=== PATIENT | male | born 1975 | race Caucasian/White ===

== ENCOUNTER 2016-07-12 12:46 | Emergency (ER) | END 2016-07-12 14:06 | disposition home or self-care (01) | DX: M54.5 Low back pain (principal); I10 Essential (primary) hypertension; F41.9 Anxiety disorder, unspecified ==

== ENCOUNTER 2016-12-29 00:52 | Emergency (ER) | payer OTHER ==
[~2016-12-29] VITALS: Ht 185.4 cm; Wt 84.0 kg
[~2016-12-29 00:52] MED LIST: HYDR-845 PO; LACT20SO2 PO; LISI-523 PO; LISI2.5T59 PO; MAG355OR15 PO; METO-448 PO; ONDA4TAB35 PO; PANT40TA4 PO; PENT400T2 PO; POTA20TA96 PO; PRED5TAB50 PO; RIFA550T4 PO; TRAM50TA2 PO
[2016-12-29 00:58] VITALS: Ht 185.4 cm; Wt 84.0 kg
--- NOTE | 2016-12-29 01:51 | ERD ---
ER Documentation Chief Complaint Date/Time DATE: 12/29/16 TIME: 01:46 Chief Complaint HEADACHE, FEELS LIKE PINS S/P HEAD INJURY 3 WEEKS AGO HPI Patient is a 41-year-old male with a past medical history of hypertension presents emergency department for concerns of a headache. Patient states 3 weeks ago he slipped in the bathroom on urine. Patient states that he did sustain a laceration to his left occipital head. Patient was seen at [facility] and states that he did have negative CT scans. Since that same patient states he continues to have headache. Patient states he has a pins and needle sensation to his head. Patient denies any sudden onset of the headache. Patient states his pain is throbbing in nature. Patient states the pain is improved when rubbing the affected area. Patient does report occasional neck pain. Patient denies any nausea, vomiting, blurry vision, excessive sleepiness , confusion or loss consciousness. Patient is speaking in full sentences. Patient denies any fevers, chills, neck stiffness, unilateral weakness. Patient is able to ambulate without any difficulty. ROS All systems reviewed and are negative except as per history of present illness. Medications Home Meds Active Scripts Acetaminophen* (Tylophen*) 500 Mg Capsule, 2 CAP PO Q6H Y for PAIN AND OR ELEVATED TEMP, #20 CAP Prov:NICK CYR PA-C 12/29/16 Hydroxyzine Hcl* (Atarax*) 50 Mg Tab, 50 MG PO Q8H Y for ANXIETY, #20 TAB Prov:EDIN MERIDA MD 07/12/16 Tramadol HCl (Tramadol HCl) 50 Mg Tablet, 50 MG PO Q6 Y for PAIN, #20 TAB Prov:EDIN MERIDA MD 07/12/16 Lisinopril* (Lisinopril*) 2.5 Mg Tablet, 2.5 MG PO DAILY, #30 TAB Prov:KALIN QUINONES MD 10/18/15 Metoprolol Tartrate* (Lopressor*) 25 Mg Tab, 12.5 MG PO BID, #60 TAB Prov:KALIN QUINONES MD 10/18/15 Potassium Chloride* (Potassium Chloride*) 20 Meq Tablet.er, 20 MEQ PO DAILY for 30 Days, TAB.SA Prov:ERYN WOODWARD 04/01/15 Rifaximin* (Xifaxan*) 550 Mg Tablet, 550 MG PO BID for 30 Days Prov:JULISSAERYN CRAFT 04/01/15 Prednisolone* (Millipred*) 5 Mg Tab, 40 MG PO DAILY for 21 Days, TAB Prov:ERYN WOODWARD 04/01/15 Pentoxifylline* (Pentoxifylline*) 400 Mg Tabsr, 400 MG PO TID for 30 Days Prov:ERYN WOODWARD 04/01/15 Pantoprazole* (Pantoprazole*) 40 Mg Tabec, 40 MG PO DAILY@06 for 30 Days Prov:ERYN WOODWARD 04/01/15 Metoprolol Tartrate* (Lopressor*) 25 Mg Tab, 12.5 MG PO DAILY for 30 Days, TAB Prov:ERYN WOODWARD 04/01/15 Lisinopril* (Zestril*) 5 Mg Tab, 2.5 MG PO DAILY for 30 Days Prov:ERYN WOODWARD 04/01/15 Lactulose* (Lactulose*) 20 Gm/30 Ml Soln, 20 GM PO BID for 30 Days Prov:ERYN WOODWARD 04/01/15 Mag Hydrox/Al Hydrox/Simeth (Maalox Max Strength Susp) 769 Ml Oral.susp, 2 TSP PO TID Y for PAIN, #12 OZ Prov:KALIN QUINONES MD 01/09/15 Ondansetron Hcl* (Zofran* ODT) 4 mg -ODT Tab.disper, 4 MG PO Q6 Y for NAUSEA AND /OR VOMITING, #20 TAB Prov:KALIN QUINONES MD 01/09/15 Allergies Allergies: Coded Allergies: No Known Allergy (Unverified , 01/09/15) PMhx/Soc History of Surgery: No Anesthesia Reaction: No Hx Neurological Disorder: No Hx Respiratory Disorders: No Hx Cardiac Disorders: Yes (htn) Hx Psychiatric Problems: Yes (depression, alcoholic) Hx Miscellaneous Medical Probl: No Hx Alcohol Use: Yes (6cans per day;drinks alcohol everyday since 6yrs old) Hx Substance Use: Yes Hx Tobacco Use: No Smoking Status: Never smoker FmHx Family History: No diabetes Physical Exam Vitals Vital Signs Date Time Temp Pulse Resp B/P Pulse Ox O2 Delivery O2 Flow Rate FiO2 12/29/16 02:46 98.0 18 138/92 98 Room Air 12/29/16 00:58 98.0 96 18 156/101 95 Physical Exam GENERAL: Well-developed, well-nourished male. Appears in no acute distress. Speaking in full sentences HEAD: Normocephalic, atraumatic. Old scars noted to the patient's left parietal region. No active bleeding or discharge. No hematomas. EYE: Pupils equal, round, and reactive to light. EOMs intact. No conjunctival erythema. No eye discharge. No periorbital ecchymosis or swelling noted bilaterally. ENT: External ear without any masses or tenderness. Auditory canals clear bilaterally. No hematotympanum noted bilaterally. TM visualized bilaterally, non-erythematous, non-bulging. Nasal mucosa pink with no discharge. Oropharynx is pink without any tonsillar erythema or exudates. No uvula deviation. No kissing tonsils. NECK: Supple. No meningismus. Normal ROM of the neck. LUNG: Clear to auscultation bilaterally. No rhonchi, wheezing, rales or coarse breath sounds. HEART: Regular rate and rhythm. No murmurs, rubs or gallops. BACK: No midline tenderness. EXTREMITIES: Equal pulses bilaterally. No peripheral clubbing, cyanosis or edema. No unilateral leg swelling. NEUROLOGIC: Alert and oriented x3, cooperative. Mood and affect appropriate to situation. Cranial nerves II through XII are grossly intact. Normal speech. Motor exam: 5/5 strength in upper and lower extremities. Sensory exam: Sensation intact to light touch on all four extremities. Cerebellar function exam: No dysmetria on gbuvor-da-fsit test. Steady gait. No pronator drift. SKIN: Normal color. Warm and dry. No rashes or lesions. Procedures/MDM ED COURSE: The patient was stable throughout ED course. I kept the patient and/or family informed of laboratory and diagnostic imaging results throughout the ED course. DIAGNOSTIC IMAGING: Read by radiologist. Patient: NICK REBOLLAR : 1975 Age: 41 Sex: M [id number] DOS: 12/29/16 0124 Ordering MD: NICK CYR PA-C Location: [facility] Room/Bed: PROCEDURE: CT cervical spine without contrast CLINICAL INDICATION: Trauma. Pain. TECHNIQUE: CT scan of the cervical spine was performed on a multidetector scanner. No IV contrast was administered. Coronal and sagittal reformatted images were obtained from the axial source images. Images were reviewed on a high-resolution PACS workstation. Exam CTDlvol = 22 mGy and DLP = 608 mGy-cm. One of the following 3 dose reduction techniques were used: Automated exposure control; adjustment of the mA and/or kV according to patient size; or use of iterative reconstruction technique. COMPARISON: None available FINDINGS: There is no fracture. Alignment is maintained. There is no spondylolisthesis. There is maintenance of height of the vertebral bodies. No significant degenerative changes are noted. Bone mineralization is within normal limits. Prevertebral soft tissues are unremarkable. IMPRESSION: 1. No acute post traumatic abnormality. RPTAT: HMVK .Edin De Leon MD, Date Time Electronically viewed and signed by .Edin De Leon MD, on 12/29/2016 02:11 .K/ CC: NICK CYR PA-C Patient: NICK REBOLLAR : 1975 Age: 41 Sex: M MR #: [id number] DOS: 12/29/16 0124 Ordering MD: NICK CYR PA-C Location: [facility] Room/Bed: PROCEDURE: CT Brain without contrast. CLINICAL INDICATION: Trauma 3 weeks ago. Continued pain. TECHNIQUE: Serial axial computed tomographic images of the brain was performed on a multidetector CT scanner from the skull base through the vertex without contrast. CTDlvol = 45 mGy and DLP = 810 mGy-cm. One of the following 3 dose reduction techniques were used: Automated exposure control; adjustment of the mA and/or kV according to patient size; or use of iterative reconstruction technique. COMPARISON: None. FINDINGS: There is slight posterior left parietal subcutaneous soft tissue swelling. There is no fracture. The ventricles and sulci are normal in size and configuration. There is no midline shift. There is no acute stroke. There is moderate degree of supratentorial periventricular and subcortical white matter hypodensities. No acute intracranial hemorrhage or abnormal extra-axial fluid collection. Visualized paranasal sinuses are clear. IMPRESSION: 1. Left parietal subcutaneous soft tissue swelling without an underlying fracture. 2. No acute post-traumatic intracranial abnormality. 3. Nonspecific white matter changes most commonly seen with small vessel disease. RPTAT: HMVK .Edin De Loen MD, MD Date Time Electronically viewed and signed by .Edin De Leon MD, MD on 12/29/2016 02:07 .K/ CC: NICK CYR PA-C MEDICAL DECISION MAKING: Patient is a 41-year-old male who presents to the ED with a headache 3 weeks after a slip and fall injury. He states he was seen at an outside hospital at that time and did state he had negative imaging studies. Vital signs were reviewed. Patient was afebrile. Patient is not hypoxic. Denies any sudden worsening onset of his headache. Patient denied any fevers, neck stiffness, jaw claudication, visual changes or LOC. Full neurological exam was normal. Given the patient continued to have headache and occasional neck pain, CT imaging of the brain as well as neck were obtained. CT neck was negative. CT brain was negative. Given these findings, the patient's presentation is most consistent with headache s/p head injury and left parietal subcutaneous soft tissue swelling. I have a much lower clinical concern for intracranial hemorrhage, meningitis, temporal arteritis, benign intracranial hypertension, intracranial mass, sinusitis, cluster headache. Low suspicion for cervical spine fracture or dislocation. PRESCRIPTIONS: Tylenol DISCHARGE: At this time, patient is stable for discharge and outpatient management. Patient was given a copy of all imaging studies obtained today. I have encouraged the patient to hydrate well. I have instructed the patient to follow- up with his/her primary care physician in 1-2 days. If symptoms persist, patient may need to see neurologist for further examinations and testing. I have instructed the patient to promptly return to the ER at any time for any new or worsening symptoms including increased increased pain, fever, nausea, vomiting, numbness, neck stiffness, visual changes, weakness or LOC. The patient and/or family expressed understanding of and agreement with this plan. All questions were answered. Home care instructions were provided. Patients blood pressure was elevated (>120/80) but appears stable without evidence of hypertensive emergency, hypertensive urgency or end-organ failure. I had discussion with the patient about the risks of hypertension. I have advised the patient to follow up with his/her primary care physician for outpatient monitoring and treatment for hypertension in 2-3 days. I have instructed the patient to return to the ER for any new or worsening symptoms including chest pain, shortness of breath, headache, blurred vision, confusion, nausea, vomiting or LOC. Departure Diagnosis: Primary Impression: Head injury due to trauma Encounter type: initial encounter Qualified Code: S09.90XA - Head injury due to trauma, initial encounter Additional Impression: Headache Headache type: unspecified Headache chronicity pattern: unspecified pattern Intractability: not intractable Qualified Code: R51 - Nonintractable headache, unspecified chronicity pattern, unspecified headache type Condition: Stable Patient Instructions: Self-Care for Headaches Referrals: JESUS MANUEL DURAND CHRISTOPHER V. MD KARAYAN, [facility], [facility] YOU HAVE RECEIVED A MEDICAL SCREENING EXAM AND THE RESULTS INDICATE THAT YOU DO NOT HAVE A CONDITION THAT REQUIRES URGENT TREATMENT IN THE EMERGENCY DEPARTMENT. FURTHER EVALUATION AND TREATMENT OF YOUR CONDITION CAN WAIT UNTIL YOU ARE SEEN IN YOUR DOCTORS OFFICE WITHIN THE NEXT 1-2 DAYS. IT IS YOUR RESPONSIBILITY TO MAKE AN APPOINTMENT FOR FOLOW-UP CARE. IF YOU HAVE A PRIMARY DOCTOR --you should call your primary doctor and schedule an appointment IF YOU DO NOT HAVE A PRIMARY DOCTOR YOU CAN CALL OUR PHYSICIAN REFERRAL HOTLINE AT IF YOU CAN NOT AFFORD TO SEE A PHYSICIAN YOU CAN CHOSE FROM THE FOLLOWING [facility] CLINICS [facility] [address] [facility] [address] [facility]. [email or web address] [address] [facility] [address] [facility] [facility] [address] [facility]. [facility] [address] [facility]. [facility] YOU HAVE RECEIVED A MEDICAL SCREENING EXAM AND THE RESULTS INDICATE THAT YOU DO NOT HAVE A CONDITION THAT REQUIRES URGENT TREATMENT IN THE EMERGENCY DEPARTMENT. FURTHER EVALUATION AND TREATMENT OF YOUR CONDITION CAN WAIT UNTIL YOU ARE SEEN IN YOUR DOCTORS OFFICE WITHIN THE NEXT 1-2 DAYS. IT IS YOUR RESPONSIBILITY TO MAKE AN APPOINTMENT FOR FOLOW-UP CARE. IF YOU HAVE A PRIMARY DOCTOR --you should call your primary doctor and schedule and appointment IF YOU DO NOT HAVE A PRIMARY DOCTOR YOU CAN CALL OUR PHYSICIAN REFERRAL HOTLINE AT . IF YOU CAN NOT AFFORD TO SEE A PHYSICIAN YOU CAN CHOSE FROM THE FOLLOWING [facility] INSTITUTIONS: [facility] [address] [place] [address] [facility] [address] [place] [address] [facility] [address] [place] [address] Additional Instructions: Call your primary care doctor TOMORROW for an appointment during the next 1-2 days.See the doctor sooner or return here if your condition worsens before your appointment time. NICK CYR PA-C Dec 29, 2016 01:51
--- NOTE | 2016-12-29 02:07 | RADRPT ---
PROCEDURE: CT Brain without contrast. CLINICAL INDICATION: Trauma 3 weeks ago. Continued pain. TECHNIQUE: Serial axial computed tomographic images of the brain was performed on a multidetector CT scanner from the skull base through the vertex without contrast. CTDlvol = 45 mGy and DLP = 810 m Gy-cm. One of the following 3 dose reduction techniques were used: Automated exposure control; adju stment of the mA and/or kV according to patient size; or use of iterative reconstruction technique. COMPARISON: None. FINDINGS: There is slight posterior left parietal subcutaneous soft tissue swelling. There is no fracture. T he ventricles and sulci are normal in size and configuration. There is no midline shift. There is no acute stroke. There is moderate degree of supratentorial periventricular and subcortical white m atter hypodensities. No acute intracranial hemorrhage or abnormal extra-axial fluid collection. Vi sualized paranasal sinuses are clear. IMPRESSION: 1. Left parietal subcutaneous soft tissue swelling without an underlying fracture. 2. No acute post-traumatic intracranial abnormality. 3. Nonspecific white matter changes most commonly seen with small vessel disease. RPTAT: HMVK .Edin De Leon MD, MD Date Time Electronically viewed and signed by .Edin De Leon MD, on 12/29/2016 02:07 .K/
--- NOTE | 2016-12-29 02:11 | RADRPT ---
PROCEDURE: CT cervical spine without contrast CLINICAL INDICATION: Trauma. Pain. TECHNIQUE: CT scan of the cervical spine was performed on a multidetector scanner. No IV contrast was administered. Coronal and sagittal reformatted images were obtained from the axial source imag es. Images were reviewed on a high-resolution PACS workstation. Exam CTDlvol = 22 mGy and DLP = 608 mGy-cm. One of the following 3 dose reduction techniques were used: Automated exposure control; adjustment o f the mA and/or kV according to patient size; or use of iterative reconstruction technique. COMPARISON: None available FINDINGS: There is no fracture. Alignment is maintained. There is no spondylolisthesis. There is maintenanc e of height of the vertebral bodies. No significant degenerative changes are noted. Bone mineraliz ation is within normal limits. Prevertebral soft tissues are unremarkable. IMPRESSION: 1. No acute post traumatic abnormality. RPTAT: HMVK .Edin De Leon MD, Date Time Electronically viewed and signed by .Edin De Leon MD, on 12/29/2016 02:11 .K/
[2016-12-29] MEDS ORDERED: ACET500C5 PO (02:15)
[2016-12-29 02:46] VITALS: BP 138/92; RESP 18; TEMP 98
== END 2016-12-29 02:46 | disposition home or self-care (01) ==
LOC: FTE 00:52
DX: S09.90XA Unspecified injury of head, initial encounter (principal); I10 Essential (primary) hypertension; R51 Headache; W01.0XXA Fall on same level from slipping, tripping and stumbling without subsequent striking against object, initial encounter; Y92.002 Bathroom of unspecified non-institutional (private) residence as the place of occurrence of the external cause
CPT/HCPCS: 70450; 72125; Z7502

== ENCOUNTER 2017-05-04 22:35 | Emergency (ER) | payer MEDICAID, OTHER ==
[~2017-05-04] VITALS: Ht 185.4 cm; Wt 88.7 kg
[~2017-05-04 22:35] MED LIST changes: +ACET500C5 PO
[2017-05-04 22:38] VITALS: Ht 185.4 cm; Wt 88.7 kg
--- NOTE | 2017-05-04 23:06 | ERD ---
ER Documentation Chief Complaint Chief Complaint C/O SOB,COLD SWEATS WITH NAUSEA. HX ALCOHOL LAST DRINK 4 HRS AGO HPI The patient is a 42-year-old male, presenting to the ER because of subjective shortness of breath, nausea vomiting of mostly mucus for 1 day. He had similar symptoms previously, denies fever, chills, neck pain, chest pain. He has chronic abdominal pain, denies diarrhea, constipation, dysuria, polyuria. He does not smoke or does any illicit drug, drinks every day Past medical history: Hypertension, depression, alcoholism, dyslipidemia, chronic low back pain, anxiety. Past surgical history: None ROS All systems reviewed and are negative except as per history of present illness. Medications Home Meds Active Scripts Acetaminophen* (Tylophen*) 500 Mg Capsule, 2 CAP PO Q6H Y for PAIN AND OR ELEVATED TEMP, #20 CAP Prov:NICK CYR PA-C 12/29/16 Hydroxyzine Hcl* (Atarax*) 50 Mg Tab, 50 MG PO Q8H Y for ANXIETY, #20 TAB Prov:NEETA MERIDA MD 07/12/16 Tramadol HCl (Tramadol HCl) 50 Mg Tablet, 50 MG PO Q6 Y for PAIN, #20 TAB Prov:NEETA MERIDA MD 07/12/16 Lisinopril* (Lisinopril*) 2.5 Mg Tablet, 2.5 MG PO DAILY, #30 TAB Prov:KALIN QUINONES MD 10/18/15 Metoprolol Tartrate* (Lopressor*) 25 Mg Tab, 12.5 MG PO BID, #60 TAB Prov:KALIN QUINONES MD 10/18/15 Potassium Chloride* (Potassium Chloride*) 20 Meq Tablet.er, 20 MEQ PO DAILY for 30 Days, TAB.SA Prov:ERYN WOODWARD 04/01/15 Rifaximin* (Xifaxan*) 550 Mg Tablet, 550 MG PO BID for 30 Days Prov:ERYN WOODWARD 04/01/15 Prednisolone* (Millipred*) 5 Mg Tab, 40 MG PO DAILY for 21 Days, TAB Prov:ERYN WOODWARD 04/01/15 Pentoxifylline* (Pentoxifylline*) 400 Mg Tabsr, 400 MG PO TID for 30 Days Prov:ERYN WOODWARD 04/01/15 Pantoprazole* (Pantoprazole*) 40 Mg Tabec, 40 MG PO DAILY@06 for 30 Days Prov:MARY JO WOODWARDNELL 04/01/15 Metoprolol Tartrate* (Lopressor*) 25 Mg Tab, 12.5 MG PO DAILY for 30 Days, TAB Prov:MARY JO WOODWARDNELL 04/01/15 Lisinopril* (Zestril*) 5 Mg Tab, 2.5 MG PO DAILY for 30 Days Prov:MARY JO WOODWARDNELL 04/01/15 Lactulose* (Lactulose*) 20 Gm/30 Ml Soln, 20 GM PO BID for 30 Days Prov:MARY JO WOODWARDNELL 04/01/15 Mag Hydrox/Al Hydrox/Simeth (Maalox Max Strength Susp) 769 Ml Oral.susp, 2 TSP PO TID Y for PAIN, #12 OZ Prov:KALIN QUINONES MD 01/09/15 Ondansetron Hcl* (Zofran* ODT) 4 mg -ODT Tab.disper, 4 MG PO Q6 Y for NAUSEA AND /OR VOMITING, #20 TAB Prov:KALIN QUINONES MD 01/09/15 Allergies Allergies: Coded Allergies: No Known Allergy (Unverified , 01/09/15) PMhx/Soc History of Surgery: No Anesthesia Reaction: No Hx Neurological Disorder: No Hx Respiratory Disorders: No Hx Cardiac Disorders: Yes (htn) Hx Psychiatric Problems: Yes (depression, alcoholic) Hx Miscellaneous Medical Probl: No Hx Alcohol Use: Yes (6cans per day;drinks alcohol everyday since 6yrs old) Hx Substance Use: Yes Hx Tobacco Use: No Physical Exam Vitals Vital Signs Date Time Temp Pulse Resp B/P Pulse Ox O2 Delivery O2 Flow Rate FiO2 05/05/17 00:44 81 16 105/86 99 Room Air 05/04/17 22:38 97.4 98 18 164/118 97 Physical Exam Const: No acute distress. Anxious Head: Atraumatic. Eyes: Normal Conjunctiva. ENT: Normal External Ears, Nose and Mouth. Neck: Full range of motion. No meningismus. Resp: Clear to auscultation bilaterally. Cardio: Regular rate and rhythm. Abd: Soft, non distended, normal bowel sounds, non tender. Skin: No petechiae or rashes. Back: No midline or flank tenderness. Ext: No cyanosis, or edema. Neur: Awake and alert. No focal deficit Psych: Normal Mood and Affect. Result Diagram: 05/04/170 05/04/172309 Results 24 hrs Laboratory Tests Test 05/04/17 23:10 White Blood Count 5.510^3/ul Red Blood Count 4.3210^6/ul Hemoglobin 12.5g/dl Hematocrit 38.1% Mean Corpuscular Volume 88.2fl Mean Corpuscular Hemoglobin 28.9pg Mean Corpuscular Hemoglobin Concent 32.8g/dl Red Cell Distribution Width 16.9% Platelet Count 86730^3/UL Mean Platelet Volume 11.0fl Neutrophils % 36.0% Lymphocytes % 42.8% Monocytes % 16.2% Eosinophils % 3.3% Basophils % 1.5% Nucleated Red Blood Cells % 0.0/100WBC Neutrophils # 2.010^3/ul Lymphocytes # 2.410^3/ul Monocytes # 0.910^3/ul Eosinophils # 0.210^3/ul Basophils # 0.110^3/ul Nucleated Red Blood Cells # 0.010^3/ul Prothrombin Time 14.5Sec Prothrombin Time Ratio 1.1 INR International Normalized Ratio 1.13 Activated Partial Thromboplast Time 31.4Sec Sodium Level 140mmol/L Potassium Level 3.7mmol/L Chloride Level 102mmol/L Carbon Dioxide Level 25mmol/L Anion Gap 17 Blood Urea Nitrogen 8mg/dl Creatinine 0.85mg/dl Glucose Level 169mg/dl Calcium Level 9.4mg/dl Magnesium Level 1.8mg/dl Total Bilirubin 0.1mg/dl Direct Bilirubin 0.00mg/dl Indirect Bilirubin 0.1mg/dl Aspartate Amino Transf (AST/SGOT) 85IU/L Alanine Aminotransferase (ALT/SGPT) 151IU/L Alkaline Phosphatase 110IU/L Total Protein 8.0g/dl Albumin 4.5g/dl Globulin 3.50g/dl Albumin/Globulin Ratio 1.28 Lipase 319U/L Current Medications Medications (Trade) Dose Ordered Sig/Constantin Route PRN Reason Start Time Stop Time Status Last Admin Dose Admin Lorazepam (Ativan) 1 mg ONCE ONCE PO 05/04/17 23:30 05/04/17 23:31 DC 05/04/17 23:21 Procedures/[facility] [address] [address] Radiology Main Line: [phone] DIAGNOSTIC IMAGING REPORT Patient: NICK REBOLLAR : 1975 Age: 42 Sex: M MR #: [id number] DOS: 05/04/17 0000 Ordering MD: NEETA MERIDA MD Location: E/R Room/Bed: PROCEDURE: CHEST - 1 VIEW CLINICAL INDICATION: 42-year-old male with shortness of breath. TECHNIQUE: A single frontal AP semi-erect view of the chest was performed. The images were reviewed on a PACS workstation. COMPARISON: CR CHEST 10/18/2015; CR CHEST 03/26/2015 FINDINGS: The cardiomediastinal silhouette has a normal appearance. There is no evidence for an infiltrate. There is no evidence for congestive heart failure. There is no evidence for pneumothorax. The osseous structures are intact. IMPRESSION: No evidence for active cardiopulmonary disease. .Adam Browning MD, MD Date Time Electronically viewed and signed by .Adam Browning MD, MD on 05/05/2017 00:15 .M/ CC: NEETA MERIDA MD EKG: Read by emergency physician Rate/Rhythm: Normal Sinus Rhythm 86 beats/min QRS, ST, T-waves: No ST elevation, no T inversion, LAE, LAD, LVH Impression: Abnormal EKG MEDICAL MAKING DECISION: The patient is a 42-year-old male, presenting with acute subjective dyspnea, most likely due to acute anxiety. He was treated with Ativan 1 mg p.o. with good response. The differential diagnoses considered include but are not limited to asthma, COPD, pneumonia, pulmonary embolus, pleural effusion, congestive heart failure. Departure Diagnosis: Primary Impression: Acute anxiety Additional Impressions: Alcohol dependence Anemia Transaminitis Condition: Good Comments I discussed the findings with the patient. I advised the patient to follow-up with the primary physician in about 1-2 days, sooner if needed and return if any concern. Disclaimer: Inadvertent spelling and grammatical errors are likely due to EHR/ dictation software use and do not reflect on the overall quality of patient care. Also, please note that the electronic time recorded on this note does not necessarily reflect the actual time of the patient encounter. NEETA MERIDA MD May 04, 2017 23:06
[2017-05-04 23:25] LABS: BASOPHIL # 0.1 10^3/ul (0.0-0.1); BASOPHILS % 1.5 % (0.0-2.0); EOSINOPHILS # 0.2 10^3/ul (0.0-0.5); EOSINOPHILS % 3.3 % (0.0-7.0); HEMATOCRIT 38.1 % (42.0-52.0); HEMOGLOBIN 12.5 g/dl (14.0-18.0); LYMPHOCYTES # 2.4 10^3/ul (0.8-2.9); LYMPHOCYTES % 42.8 % (15.0-51.0); MEAN CORPUSCULAR HEMOGLOBIN 28.9 pg (29.0-33.0); MEAN CORPUSCULAR HGB CONC 32.8 g/dl (32.0-37.0); MEAN CORPUSCULAR VOLUME 88.2 fl (82.0-101.0); MONOCYTE # 0.9 10^3/ul (0.3-0.9); MONOCYTES % 16.2 % (0.0-11.0); PLATELET COUNT 210 10^3/UL (140-415); RED BLOOD COUNT 4.32 10^6/ul (4.70-6.10); RED CELL DISTRIBUTION WIDTH 16.9 % (11.5-14.5); WHITE BLOOD COUNT 5.5 10^3/ul (4.8-10.8)
[2017-05-04] MEDS ORDERED: LORAZEPAM 1 MG TAB PO ONE (23:30)
[2017-05-05 00:06] LABS: INR 1.13; PROTIME 14.5 Sec (12.2-14.2); PT RATIO 1.1
[2017-05-05 00:07] LABS: PARTIAL THROMBOPLASTIN TIME 31.4 Sec (25.0-35.0)
[2017-05-05 00:11] LABS: ALBUMIN 4.5 g/dl (3.3-4.9); ALBUMIN/GLOBULIN RATIO 1.28; BILIRUBIN,INDIRECT 0.1 mg/dl (0-1.1); BILIRUBIN,TOTAL 0.1 mg/dl (0.2-1.3); CALCIUM 9.4 mg/dl (8.4-10.2); CREATININE 0.85 mg/dl (0.61-1.24); MAGNESIUM 1.8 mg/dl (1.7-2.5); POTASSIUM 3.7 mmol/L (3.5-5.1)
--- NOTE | 2017-05-05 00:15 | RADRPT ---
PROCEDURE: CHEST - 1 VIEW CLINICAL INDICATION: 42-year-old male with shortness of breath. TECHNIQUE: A single frontal AP semi-erect view of the chest was performed. The images were review ed on a PACS workstation. COMPARISON: CR CHEST 10/18/2015; CR CHEST 03/26/2015 FINDINGS: The cardiomediastinal silhouette has a normal appearance. There is no evidence for an infiltrate. There is no evidence for congestive heart failure. There is no evidence for pneumothorax. The osseou s structures are intact. IMPRESSION: No evidence for active cardiopulmonary disease. .Adam Browning MD, MD Date Time Electronically viewed and signed by .Adam Browning MD, on 05/05/2017 00:15 .M/
[2017-05-05 02:15] VITALS: BP 121/90; PULSE 90; RESP 18
== END 2017-05-05 02:16 | disposition home or self-care (01) ==
LOC: E/R 22:35
DX: F41.9 Anxiety disorder, unspecified (principal); F10.229 Alcohol dependence with intoxication, unspecified; D64.9 Anemia, unspecified; R74.0 Nonspecific elevation of levels of transaminase and lactic acid dehydrogenase [LDH]; I10 Essential (primary) hypertension
CPT/HCPCS: 36415; 71010; 80053; 83690; 83735; 85025; 85610; 85730; Z7502; Z7610

== ENCOUNTER 2017-10-18 23:32 | Emergency (ER) | END 2017-10-19 02:20 | disposition home or self-care (01) ==

== ENCOUNTER 2017-11-11 15:04 | Emergency (ER) | END 2017-11-11 17:12 | disposition home or self-care (01) ==